=== PATIENT | male | born 1970 | race Caucasian/White ===

== ENCOUNTER 2017-03-01 20:16 | Emergency (ER) | payer OTHER ==
[~2017-03-01] VITALS: Ht 177.8 cm; Wt 81.6 kg
[~2017-03-01 20:16] MED LIST: FLEXERIL10 M1; FLEXERIL10 MG PO; NAPROXEN PO; NO MEDICATIONS; VOLTAREN75 MG
== END 2017-03-01 20:50 | disposition home or self-care (01) ==
LOC: SED 20:16
DX: L23.7 Allergic contact dermatitis due to plants, except food (principal); F17.210 Nicotine dependence, cigarettes, uncomplicated
CPT/HCPCS: 99282